=== PATIENT | female | born 1960 | race Caucasian/White ===

== ENCOUNTER 2019-03-02 14:23 | Emergency (ER) | payer MEDICARE, OTHER ==
[2019-03-02] MEDS ORDERED: methylPREDNISolone Sod Succ/PF 125 MG/2 ML VIAL ONE (14:46)
[2019-03-02] MEDS ORDERED: Albuterol Sulfate 2.5 mg/0.5 ml Neb ONE ×2 (14:46→15:36)
--- NOTE | 2019-03-02 14:56 | RAD ---
PORTABLE CHEST 1 VIEW: Date: 03/02/19 Time: 1428 hours HISTORY: Dyspnea. FINDINGS/IMPRESSION: The heart is enlarged. The aorta is tortuous. The lungs are expanded without focal areas of consolida tion, pneumothoraces, corky pulmonary edema, or large effusions. There are postop changes of metallic hardware in the lower cervical spine. POS: [facility]
[2019-03-02 14:57] LABS: #Basophils 0.2 thou/uL (0.0-0.2); #Eosinphils 0.2 thou/uL (0.0-0.7); #Lymphocytes 1.7 thou/uL (1.20-3.40); #Monocytes 0.9 thou/uL (0.11-0.59); #Neutrophils 6.3 thou/uL (1.40-6.50); %Eosinophils 2.5 % (0.0-10.0); %Monocytes 9.5 % (0.0-10.0); Hemoglobin 14.4 g/dL (12.0-16.0); Mean Corpuscular HGB CONC 30.7 g/dL (32.0-36.0); Mean Corpuscular Hemoglobin 26.8 pg (27.0-31.0); Mean Corpuscular Volume 87.4 fL (78.0-98.0); Mean Platelet Volume 7.6 fL (7.4-10.4); Platelet Count 271 thou/uL (130-400); RBC Distribution Width 15.5 % (11.5-14.5); Red Blood Cell (RBC) Count 5.38 mill/uL (4.20-5.40); White Blood Cell (WBC) Count 9.2 thou/uL (4.8-10.8)
[2019-03-02] MEDS ORDERED: Sodium Chloride For Inhalation 0.9% 3 ML NEB ONE ×2 (15:02→15:36)
[2019-03-02 15:04] LABS: INR-International Normal Ratio 0.9; PTT 26.4 SEC (22.9-36.1); Prothrombin Time 12.6 SEC (12.0-14.7)
[2019-03-02 15:13] LABS: ALT (SGPT) 13 U/L (8-55); AST (SGOT) 13 U/L (5-34); Albumin 4.2 g/dL (3.5-5.0); Alkaline Phosphatase 77 U/L (40-110); Anion Gap 19 mmol/L (10-20); BUN (Urea Nitrogen) 11 mg/dL (9.8-20.1); Bilirubin, Total 0.3 mg/dL (0.2-1.2); Calc. Creatinine Clearance 0 mL/min (70-130); Calcium 9.2 mg/dL (7.8-10.44); Carbon Dioxide 22 mmol/L (22-29); Chloride 104 mmol/L (98-107); Estimated GFR-MDRD 64; Globulin 3.3 g/dL (2.4-3.5); Glucose 120 mg/dL (70-105); Magnesium 1.8 mg/dL (1.6-2.6); Protein, Total 7.5 g/dL (6.0-8.3); Sodium 141 mmol/L (136-145)
[2019-03-02] MEDS ORDERED: Aspirin Chewable 81 MG TAB ONE (15:45)
[2019-03-02] MEDS ORDERED: cefTRIAXone\\ROCEPHIN 2 GM VIAL ONE ×2 (15:45)
[2019-03-02] MEDS ORDERED: Sodium Chloride 0.9% 100 ML ONE (15:46)
[2019-03-02 16:35] LABS: Base Excess-Venous -1.2 mmol/L (-2.0 to 3.0); Bicarbonate (HCO3v) 25.4 mmol/L (22.0-28.0); CO2 Tension (PvCO2) 47.8 mmHg (40.0-50.0); Calcium, Ionized 1.08 mmol/L (See Comments:); Chloride 105 mmol/L (98-107); Hemoglobin - Calc 17.4 g/dL (12.0-16.0); Potassium 3.7 mmol/L (3.5-5.1); Sodium 141 mmol/L (138-145); T. Carbon Dioxide 26.9 mmol/L (22.0-28.0)
== END 2019-03-02 17:58 | disposition short-term general hospital (02) ==
LOC: NAV ERS 14:23
DX: N19 Unspecified kidney failure (principal); J44.1 Chronic obstructive pulmonary disease with (acute) exacerbation; G43.909 Migraine, unspecified, not intractable, without status migrainosus; K21.9 Gastro-esophageal reflux disease without esophagitis; I50.9 Heart failure, unspecified; E78.5 Hyperlipidemia, unspecified; E78.00 Pure hypercholesterolemia, unspecified; F31.9 Bipolar disorder, unspecified; F17.210 Nicotine dependence, cigarettes, uncomplicated; Z79.899 Other long term (current) drug therapy; Z86.711 Personal history of pulmonary embolism
CPT/HCPCS: 71045; 80053; 82330; 82803; 83735; 83880; 84484; 85025; 85379; 85610; 85730; 93005; 94640; 94760; 96365; 96375; J0696; J2930; J3490; J7611; J7620